=== PATIENT | female | born 1965 | race African-American/Black ===

== ENCOUNTER 2021-01-24 19:58 | Emergency (ER) | payer OTHER, SELFPAY ==
[~2021-01-24] VITALS: Ht 175.3 cm; Wt 67.2 kg
--- NOTE | 2021-01-24 20:32 | NUR ---
Pt denies chest pain, SOB, cough, fever, n/v, diarrhea. Reports her only symptom is pressure in her head. PA and RN at bedside. Pt's son at bedside. Provided pt warm blanket.
[2021-01-24] MEDS ORDERED: ACETAMINOPHEN 500 MG TABLET PO ONE (21:00)
[2021-01-24] MEDS ORDERED: PLEASE ENTER ALLERGIES MC SCH (21:00)
[2021-01-24 21:15] LABS: MEAN CORPUSCULAR HEMOGLOBIN 32.2 pg (27.0-34.8); MEAN CORPUSCULAR HGB CONC 34.4 g/dL (32.4-35.8); MEAN PLATELET VOLUME 6.6 fL (7.4-10.4); PLATELET COUNT 337 x10^3/uL (130-400); RED CELL DISTRIBUTION WIDTH 14.3 % (9.6-15.2)
[2021-01-24] MEDS ORDERED: ACETAMINOPHEN 500 MG TABLET ONE (21:26)
[2021-01-24 21:44] LABS: ALBUMIN 4.5 g/dL (3.4-5.0); ANION GAP 12 mmol/L (5-15); CALCIUM 8.8 mg/dL (8.5-10.1); CHLORIDE 109 mmol/L (98-107); CREATININE 0.99 mg/dL (0.55-1.02)
--- NOTE | 2021-01-24 21:48 | NUR ---
TASK RN: PT RESTING IN [place] AT THIS TIME, FRIEND AT BEDSIDE, PT MEDICATED PER EMAR, MONITORING IN PLACE.
[2021-01-24 21:50] LABS: MD YES
[2021-01-24 21:54] LABS: BASOS% (MANUAL) 2 % (0-1); EOS#(MANUAL) 0.05 x10^3/uL (0.0-0.4); EOS% (MANUAL) 1 % (1-7); LYMPH#(MANUAL) 2.65 x10^3/uL (1-3.4); LYMPHS% (MANUAL) 53 % (22-44); MONOS#(MANUAL) 0.15 x10^3/uL (0.3-2.7); MONOS% (MANUAL) 3 % (2-9); REACTIVE LYMPHS % (MANUAL) 4 % (0-0); SEG#(MANUAL) 1.85 x10^3/uL (1.8-6.8); SEGS% (MANUAL) 37 % (42-75)
[2021-01-24 21:55] LABS: <PLATELET ESTIMATE> ADEQUATE; <RBC MORPHOLOGY> NORMAL; SMALL PLATELETS 1+
--- NOTE | 2021-01-24 23:32 | NUR ---
TASK RN: DC EDUCATION PROVIDED, PT DEMONSTRATES UNDERSTANDING. PT AMBULATED STEADILY TO DC WITH RN AND SO
[2021-01-24 23:33] VITALS: BP 130/70
== END 2021-01-24 23:35 | disposition home or self-care (01) ==
LOC: ED 21:31
DX: K02.9 Dental caries, unspecified (principal); R51.9 Headache, unspecified; R42 Dizziness and giddiness; R94.31 Abnormal electrocardiogram [ECG] [EKG]; Z87.891 Personal history of nicotine dependence
CPT/HCPCS: 36415; 80048; 82040; 84443; 85025; 93005; 99281; 99284